=== PATIENT | female | born 1975 | race Caucasian/White ===

== ENCOUNTER → 2016-10-20 | Outpatient (CLI) | payer MEDICARE ==
[~2016-10-20] MED LIST: CELEXA40 MG PO; CHANTIX0.5 MG PO; ECOTRIN81 MG PO; FLEXERIL 10 MG10 MG PO; LOPRESSOR 25 MG25 MG PO; MIRALAX17 GM PO; NORCO 7.5-3251 EACH PO; PROTONIX 40 MG40 M1 PO; SEROQUEL100 MG PO; SYNTHROID50 MCG PO; WELLBUTRIN SR150 MG PO
== END ==
LOC: MAMO 10-18 09:40
DX: Z12.31 Encounter for screening mammogram for malignant neoplasm of breast (principal)
CPT/HCPCS: G0202

== ENCOUNTER → 2016-11-02 | Outpatient (CLI) | payer MEDICARE | LOC: EMI 14:20 | DX: M54.16 Radiculopathy, lumbar region (principal); M51.37 Other intervertebral disc degeneration, lumbosacral region | CPT/HCPCS: 72148 ==

== ENCOUNTER → 2016-12-02 | Outpatient (CLI) | payer MEDICARE | LOC: SLEEP 21:30 | DX: G47.33 Obstructive sleep apnea (adult) (pediatric) (principal) | CPT/HCPCS: 95811 ==